=== PATIENT | male | born 1965 | race Caucasian/White ===

== ENCOUNTER 2016-06-30 00:55 | Emergency (ER) | payer SELFPAY ==
[~2016-06-30] VITALS: Ht 182.9 cm; Wt 93.0 kg
[2016-06-30 04:01] VITALS: BP 125/63
== END 2016-06-30 04:01 | disposition home or self-care (01) ==
LOC: ER 00:58
DX: S62.396A Other fracture of fifth metacarpal bone, right hand, initial encounter for closed fracture (principal); S61.214A Laceration without foreign body of right ring finger without damage to nail, initial encounter; F41.9 Anxiety disorder, unspecified; W22.01XA Walked into wall, initial encounter; Y93.9 Activity, unspecified; Y92.89 Other specified places as the place of occurrence of the external cause; Y99.8 Other external cause status
CPT/HCPCS: 26605; 73130; 99284; A4606; A6402 ×2; Z7610